=== PATIENT | female | born 1945 | race Caucasian/White ===

== ENCOUNTER 2017-12-19 18:46 | Emergency (ER) | payer MEDICARE, BC ==
[2017-12-19] MEDS ORDERED: Acetaminophen 500 MG TAB ONE (19:19)
[2017-12-19 19:23] LABS: #Eosinphils 0.2 thou/uL (0.0-0.7); #Lymphocytes 2.2 thou/uL (1.20-3.40); #Monocytes 0.5 thou/uL (0.11-0.59); #Neutrophils 3.9 thou/uL (1.40-6.50); %Basophils 0.4 % (0.0-1.0); %Eosinophils 3.2 % (0.0-10.0); %Lymphocytes 31.6 % (21.0-51.0); %Monocytes 7.5 % (0.0-10.0); %Neutrophils 57.3 % (42.0-75.0); Hemoglobin 12.9 g/dL (12.0-16.0); Mean Corpuscular HGB CONC 33.1 g/dL (32.0-36.0); Mean Corpuscular Hemoglobin 29.5 pg (27.0-31.0); Mean Corpuscular Volume 89.1 fl (81.0-99.0); Mean Platelet Volume 7.1 fL (7.4-10.4); Platelet Count 248 thou/uL (130-400); Red Blood Cell (RBC) Count 4.39 mill/uL (4.20-5.40); White Blood Cell (WBC) Count 6.8 thou/uL (4.8-10.8)
[2017-12-19 19:43] LABS: ALT (SGPT) 12 U/L (8-55); AST (SGOT) 23 U/L (5-34); Albumin 4.1 g/dL (3.4-4.8); Alkaline Phosphatase 72 U/L (40-150); Anion Gap 12 mmol/L (10-20); BUN (Urea Nitrogen) 19 mg/dL (9.8-20.1); Bilirubin, Total 0.5 mg/dL (0.2-1.2); Calc. Creatinine Clearance 0 mL/min (70-130); Calcium 9.7 mg/dL (7.8-10.44); Carbon Dioxide 28 mmol/L (23-31); Chloride 101 mmol/L (98-107); Estimated GFR-MDRD 64; Globulin 3.9 g/dL (2.4-3.5); Glucose 132 mg/dL (83-110); Sodium 137 mmol/L (136-145)
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
--- NOTE | 2018-01-25 00:01 | EKG ---
Test Reason : Blood Pressure : / mmHG Vent. Rate : 104 BPM Atrial Rate : 104 BPM P-R Int : 142 ms QRS Dur : 074 ms QT Int : 364 ms P-R-T Axes : 056 -22 060 degrees QTc Int : 478 ms Sinus tachycardia Cannot rule out Anterior infarct , age undetermined Abnormal ECG Confirmed by ANITA DEVRIES ([id number]), editorial clerk HEBERT GREEN ([id number]) on 01/25/2018 12:01:03 AM Referred By: Confirmed By:ANITA DEVRIES
== END 2017-12-19 20:32 | disposition home or self-care (01) ==
LOC: ERS 18:46
DX: S29.011A Strain of muscle and tendon of front wall of thorax, initial encounter (principal); S16.1XXA Strain of muscle, fascia and tendon at neck level, initial encounter; V43.52XA Car driver injured in collision with other type car in traffic accident, initial encounter
CPT/HCPCS: 36415; 70450; 71046; 72125; 80053; 85025; 93005; 96360

== ENCOUNTER 2018-09-28 09:23 | Outpatient (CLI) | payer MEDICARE, BC ==
[~2018-09-28 09:23] MED LIST: ADENOSINE 60 MG/20 ML VIAL ONE
--- NOTE | 2018-09-28 14:55 | NM ---
RADIONUCLIDE STRESS AND REST MYOCARDIAL PERFUSION SCAN WITH CT ATTENUATION CORRECTION AND SPECT IMAGI NG. LEFT VENTRICULAR WALL MOTION EVALUATION AND EJECTION FRACTION: HISTORY: Chest pain. Hypertension. FINDINGS: Adenosine protocol. Homogeneous uptake of radiotracer throughout the left ventricular myocardium. N o focal perfusion defect or reversibility. QGS analysis of gated SPECT images show no focal wall mot ion abnormalities. Ejection fraction calculated at 67%. IMPRESSION: 1. Normal myocardial perfusion scan. 2. Normal left ventricular ejection fraction. POS: [facility]
--- NOTE | 2018-10-08 13:09 | STRESS ---
Acquisition Time: 2018-09-28 11:24:59 Total Exercise Time: 00:04:00 Test Indications: CHEST PAIN Medications: Protocol: ADENOSINE Max HR: 105 BPM 71% of Pred: 147 BPM Max BP: 156/078 mmHG Max Work Load: 1.0 METS RESTING ECG: NORMAL SINUS RHYTHM AT 86 BPM WITH RARE PAC'S SYMPTOMS: DYSPNEA NORMAL BP RESPONSE ECTOPY: RARE PAC'S ECG STRESS: NO SIGNIFICANT CHANGES INTERPRETATION: AWAIT NUCLEAR IMAGES FOR DEFINITIVE DIAGNOSIS Confirmed by MARY DYSON ([id number]), clinical editor EKLLY SHETTY ([id number]) on 10/08/2018 1:09:29 PM Referred By: MD Sri CRAVEN Confirmed By:MARY DYSON
== END 2018-09-28 09:24 | disposition home or self-care (01) ==
LOC: NM 09:23
PROVIDERS: ATTEND Internal Medicine
DX: I25.10 Atherosclerotic heart disease of native coronary artery without angina pectoris (principal)
CPT/HCPCS: 78452; 93017; A9500; J0153

== ENCOUNTER 2019-01-05 15:29 | Outpatient (CLI) | payer MEDICARE, BC ==
--- NOTE | 2019-01-05 16:02 | MMO ---
Bilateral MAMMO Bilat Screen DDI+TO. CLINICAL HISTORY: Patient is 73 years old and is seen for screening. The patient has no family history of breast cancer. The patient has no personal history of cancer. VIEWS: The views performed were: bilateral craniocaudal with tomosynthesis and bilateral mediolateral oblique with tomosynthesis. FILMS COMPARED: The present examination has been compared to prior imaging studies performed at [facility] on 02/27/2015, 04/09/2016 and 05/20/2017. MAMMOGRAM FINDINGS: There are scattered fibroglandular densities. There are stable benign appearing calcifications seen in both breasts. There are also vascular calcifications. There are no suspicious masses, suspicious calcifications, or new areas of architectural distortion. IMPRESSION: THERE IS NO MAMMOGRAPHIC EVIDENCE OF MALIGNANCY. A ROUTINE FOLLOW-UP MAMMOGRAM IN 1 YEAR IS RECOMMENDED. THE RESULTS OF THIS EXAM WERE SENT TO THE PATIENT. ACR BI-RADS Category 2 - Benign finding MAMMOGRAPHY NOTE: 1. A negative mammogram report should not delay a biopsy if a dominant of clinically suspicious mass is present. 2. Approximately 10% to 15% of breast cancers are not detected by mammography. 3. Adenosis and dense breasts may obscure an underlying neoplasm.
== END 2019-01-05 15:30 | disposition home or self-care (01) ==
LOC: BICMAMMO 15:29
PROVIDERS: ATTEND Family Medicine
DX: Z12.31 Encounter for screening mammogram for malignant neoplasm of breast (principal)
CPT/HCPCS: 77063; 77067

== ENCOUNTER 2019-05-28 08:36 | Outpatient (CLI) | payer MEDICARE, BC ==
[2019-05-28] MEDS ORDERED: ADENOSINE 60 MG/20 ML VIAL ONE (09:05)
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
== END 2019-05-28 08:37 | disposition home or self-care (01) ==
LOC: NM 08:36
PROVIDERS: ATTEND Internal Medicine
DX: R07.9 Chest pain, unspecified (principal)
CPT/HCPCS: 78452; 93017; A9500; 71045; 80053; 82550; 84484; 85025; 93005; J0153

== ENCOUNTER 2019-05-28 13:21 | Emergency (ER) | payer MEDICARE, BC ==
[2019-05-28] MEDS ORDERED: Nitroglycerin 2% Ointment 1 INCH/1 GM Packet ONE (13:27)
[2019-05-28] MEDS ORDERED: Aspirin Chewable 81 MG TAB ONE (13:28)
[2019-05-28 13:43] LABS: #Basophils 0.1 thou/uL (0.0-0.2); #Eosinphils 0.2 thou/uL (0.0-0.7); #Lymphocytes 2.5 thou/uL (1.20-3.40); #Monocytes 0.5 thou/uL (0.11-0.59); #Neutrophils 5.1 thou/uL (1.40-6.50); %Basophils 0.9 % (0.0-1.0); %Monocytes 6.3 % (0.0-10.0); %Neutrophils 60.8 % (42.0-75.0); Hemoglobin 13.5 g/dL (12.0-16.0); Mean Corpuscular HGB CONC 33.3 g/dL (32.0-36.0); Mean Corpuscular Hemoglobin 29.6 pg (27.0-31.0); Mean Corpuscular Volume 88.8 fL (78.0-98.0); Mean Platelet Volume 7.2 fL (7.4-10.4); Platelet Count 292 thou/uL (130-400); RBC Distribution Width 12.4 % (11.5-14.5); Red Blood Cell (RBC) Count 4.57 mill/uL (4.20-5.40); White Blood Cell (WBC) Count 8.4 thou/uL (4.8-10.8)
--- NOTE | 2019-05-28 13:58 | RAD ---
Portable frontal chest radiograph: 05/28/2019 COMPARISON: 01/11/2017 HISTORY: Deep chest pain, diaphoresis FINDINGS: There is mild elevation of the right hemidiaphragm. There is atherosclerotic calcification of the aortic arch. No pneumothorax or pleural fluid. No focal consolidation or alveolar edema. IMPRESSION: No acute findings.
[2019-05-28 14:04] LABS: ALT (SGPT) 14 U/L (8-55); AST (SGOT) 18 U/L (5-34); Albumin 4.2 g/dL (3.4-4.8); Alkaline Phosphatase 81 U/L (40-110); Anion Gap 12 mmol/L (10-20); BUN (Urea Nitrogen) 17 mg/dL (9.8-20.1); Bilirubin, Total 0.4 mg/dL (0.2-1.2); CK (CPK) 60 U/L (29-168); Calc. Creatinine Clearance 0 mL/min (70-130); Calcium 9.7 mg/dL (7.8-10.44); Carbon Dioxide 30 mmol/L (23-31); Chloride 100 mmol/L (98-107); Estimated GFR-MDRD 66; Globulin 3.5 g/dL (2.4-3.5); Glucose 94 mg/dL (83-110); Protein, Total 7.7 g/dL (6.0-8.3); Sodium 138 mmol/L (136-145)
[2019-05-28] MEDS ORDERED: Lidocaine Viscous Sol 2% 15 ml UD Cup ONE (14:34)
[2019-05-28] MEDS ORDERED: Mag-Al 1200 mg/1200 mg/30 ML UDCUP ONE (14:34)
== END 2019-05-28 15:20 | disposition home or self-care (01) ==
LOC: ERS 13:21
DX: R07.9 Chest pain, unspecified (principal); Z79.82 Long term (current) use of aspirin; Z79.899 Other long term (current) drug therapy; R03.0 Elevated blood-pressure reading, without diagnosis of hypertension
CPT/HCPCS: 71045; 80053; 82550; 84484; 85025; 93005

== ENCOUNTER 2020-01-18 15:38 | Outpatient (CLI) | payer MEDICARE, BC ==
--- NOTE | 2020-01-18 16:12 | MMO ---
Bilateral MAMMO Bilat Diag DDI+TO. CLINICAL HISTORY: Patient is 74 years old and is seen for diagnostic exam and pain in the left breast. The patient has no family history of breast cancer. The patient has no personal history of cancer. VIEWS: The views performed were: bilateral craniocaudal with tomosynthesis; bilateral mediolateral oblique with tomosynthesis; and bilateral mediolateral with tomosynthesis. FILMS COMPARED: The present examination has been compared to prior imaging studies performed at [facility] on 04/09/2016, 05/20/2017 and 01/05/2019. This study has been interpreted with the assistance of computer-aided detection. MAMMOGRAM FINDINGS: There are scattered fibroglandular densities. Benign calcifications are noted bilaterally. There are no suspicious masses, suspicious calcifications, or new areas of architectural distortion. IMPRESSION: THERE IS NO MAMMOGRAPHIC EVIDENCE OF MALIGNANCY. A ROUTINE FOLLOW-UP MAMMOGRAM IN 1 YEAR IS RECOMMENDED. THE RESULTS OF THIS EXAM WERE SENT TO THE PATIENT. ACR BI-RADS Category 2 - Benign finding MAMMOGRAPHY NOTE: 1. A negative mammogram report should not delay a biopsy if a dominant of clinically suspicious mass is present. 2. Approximately 10% to 15% of breast cancers are not detected by mammography. 3. Adenosis and dense breasts may obscure an underlying neoplasm. Reported by: JOSE JUAN SOLIS MD Electonically Signed: [id number]
== END 2020-01-18 15:39 | disposition home or self-care (01) ==
LOC: BICMAMMO 15:38
PROVIDERS: ATTEND Obstetrics & Gynecology
DX: N64.4 Mastodynia (principal)
CPT/HCPCS: 77066; G0279

== ENCOUNTER 2020-03-29 10:30 | Outpatient (CLI) | payer MEDICARE, BC ==
[2020-03-29] MEDS ORDERED: Iopamidol-370 76% 500 ML 1 ML ONE (10:38)
--- NOTE | 2020-03-29 12:13 | CT ---
CTA Angio Abd W WO Con History: Acute ischemia of large intestine Comparison: Reference is made to a CT abdomen pelvis with contrast 2015 Findings: CT angiogram of the abdomen was performed after the intravenous administration of contrast. 3-D rendering provided. Mild peripheral reticulation lung bases. No pericardial effusion. The spleen, adrenal glands, kidneys are unremarkable. Liver is unremarkable. Prior cholecystectomy. N o hydronephrosis. No abnormal renal enhancing mass. Moderate parenchymal atrophy of the pancreas. Subcapsular hypodensity in the superior pole spleen unc hanged in size likely a benign entity. Moderate degenerative disc space changes lower lumbar spine. Small fat-containing umbilical hernia. Vessels: Aorta: Nonaneurysmal. No dissection. Superior mesenteric artery, celiac trunk and inferior mesenteric arteries are patent. Renal arteries are patent. Impression: 1. No hemodynamic significant stenosis of the enteric vessels. 2. Benign hypodensity superior pole of the spleen. 3. No acute inflammatory process within the abdomen.
== END 2020-03-29 10:31 | disposition home or self-care (01) ==
LOC: BICCT 10:30
PROVIDERS: ATTEND Internal Medicine
DX: K55.039 Acute (reversible) ischemia of large intestine, extent unspecified (principal); D73.89 Other diseases of spleen
CPT/HCPCS: 74175; Q9967

== ENCOUNTER 2021-12-07 11:28 | Outpatient (CLI) | payer MEDICARE, BC | END 2021-12-07 11:29 | disposition home or self-care (01) | LOC: SCSMRI 11:28 | PROVIDERS: ATTEND Physician Assistant Medical | DX: Z12.11 Encounter for screening for malignant neoplasm of colon (principal); M53.3 Sacrococcygeal disorders, not elsewhere classified; K59.09 Other constipation; K60.2 Anal fissure, unspecified; Z83.79 Family history of other diseases of the digestive system; K21.9 Gastro-esophageal reflux disease without esophagitis; K64.9 Unspecified hemorrhoids; K57.90 Diverticulosis of intestine, part unspecified, without perforation or abscess without bleeding; R10.31 Right lower quadrant pain; R07.89 Other chest pain; K62.89 Other specified diseases of anus and rectum; K64.8 Other hemorrhoids | CPT/HCPCS: 72197; 82565 ==

== ENCOUNTER 2021-12-14 10:36 | Outpatient (CLI) | payer MEDICARE, BC ==
[2021-12-14 11:47] LABS: #Eosinphils 0.3 10x3/uL (0.0-0.5); #Monocytes 0.5 10x3/uL (0.0-1.1); #Neutrophils 2.3 10x3/uL (1.5-8.4); %Basophils 0.6 % (0.0-2.0); %Eosinophils 5.4 % (0.0-6.0); %Lymphocytes 36.7 % (18.0-47.0); %Monocytes 9.8 % (0.0-10.0); %Neutrophils 47.1 % (40.0-75.0); Hemoglobin 11.5 g/dL (12.0-15.5); Mean Corpuscular HGB CONC 32.4 g/dL (32.0-36.0); Mean Corpuscular Hemoglobin 28.3 pg (27.0-33.0); Mean Corpuscular Volume 87.4 fl (81.6-98.3); Mean Platelet Volume 10.5 fl (7.4-10.4); Platelet Count 225 10x3/uL (150-450); RBC Distribution Width 12.9 % (11.5-14.5); Red Blood Cell (RBC) Count 4.06 10x6/uL (3.90-5.03); White Blood Cell (WBC) Count 4.8 10x3/uL (3.5-10.5)
[2021-12-14 12:03] LABS: Anion Gap 15 mmol/L (10-20); BUN (Urea Nitrogen) 23 mg/dL (9.8-20.1); Calc. Creatinine Clearance 0 mL/min (70-130); Calcium 9.3 mg/dL (7.8-10.44); Carbon Dioxide 28 mmol/L (23-31); Chloride 103 mmol/L (98-107); Glucose 106 mg/dL (83-110); Potassium 4.1 mmol/L (3.5-5.1); Sodium 142 mmol/L (136-145)
[2021-12-14 21:58] LABS: SARS-CoV-2 PCR by NAA Not Detected (NotDetected)
== END 2021-12-14 10:37 | disposition home or self-care (01) ==
LOC: LABBT 10:36
PROVIDERS: ATTEND Surgery
DX: Z01.812 Encounter for preprocedural laboratory examination (principal); K60.3 Anal fistula; Z20.822 Contact with and (suspected) exposure to COVID-19
CPT/HCPCS: 80048; 85025; U0003; U0005

== ENCOUNTER 2021-12-19 09:50 | Day surgery (SDC) | payer MEDICARE, BC ==
[2021-12-13 15:08] VITALS: BMI 25.9
[2021-12-19] MEDS ORDERED: Fentanyl 100 MCG/2 ML VIAL ONE ×3 (10:39→11:22)
[2021-12-19] MEDS ORDERED: Lidocaine 1% w/Epinephrine 1:100K 20 ML VIAL ONE (10:40)
[2021-12-19] MEDS ORDERED: Lidocaine 2% Jelly 5 ML TUBE ONE (10:40)
[2021-12-19] MEDS ORDERED: Bupivacaine 0.25% 10 ML VIAL ONE ×2 (10:40)
[2021-12-19] MEDS ORDERED: Famotidine/PF 20 mg/2ml Vial ONE (11:08)
[2021-12-19] MEDS ORDERED: ceFAZolin (BATCH) 2 GM/100 ML BAG ONE (11:56)
[2021-12-19] MEDS ORDERED: PROPOFOL 20 ML ONE (12:03)
[2021-12-19] MEDS ORDERED: Lidocaine 1% PF 5 ML VIAL ONE (12:08)
[2021-12-19] MEDS ORDERED: Ondansetron PF 4 MG/2 ML Vial ONE (12:08)
[2021-12-19] MEDS ORDERED: Dexamethasone 20 MG/5 ML VIAL ONE (12:08)
[2021-12-19] MEDS ORDERED: ePHEDrine 50 MG/ML VIAL ONE (12:08)
[2021-12-19] MEDS ORDERED: PROPOFOL 200 MG/20 ML VIAL ONE (12:08)
[2021-12-19] MEDS ORDERED: Promethazine HCl 25 MG/ML VIAL ONE (13:26)
== END 2021-12-19 16:30 | disposition home or self-care (01) ==
LOC: SDC 09:50
PROVIDERS: ATTEND Surgery
PROC: 0DJD8ZZ Inspection of Lower Intestinal Tract, Via Natural or Artificial Opening Endoscopic (ICD-10-PCS; principal; 2021-12-19)
DX: K62.89 Other specified diseases of anus and rectum (principal); K64.4 Residual hemorrhoidal skin tags; K21.9 Gastro-esophageal reflux disease without esophagitis; M19.90 Unspecified osteoarthritis, unspecified site; E07.9 Disorder of thyroid, unspecified; Z79.2 Long term (current) use of antibiotics; Z79.890 Hormone replacement therapy; Z79.899 Other long term (current) drug therapy; Z88.5 Allergy status to narcotic agent; Z88.8 Allergy status to other drugs, medicaments and biological substances
CPT/HCPCS: J0690; J1100; J2405; J2550; J2704; J3010; J3490; S0020; S0028

== ENCOUNTER 2022-05-01 15:35 | Observation (INO) | payer MEDICARE, BC ==
[2022-05-01 16:58] VITALS: BMI 25.9
[2022-05-01] MEDS ORDERED: HYDROcodone/Acetaminophen 7.5/325 mg Tablet PO PRN ×2 (18:26→18:37)
[2022-05-01] MEDS ORDERED: METHadone HCl 10 MG TAB PO PRN (18:37)
[2022-05-01 20:05] LABS: Troponin I Less than 0.010 ng/mL (< 0.028)
[2022-05-01] MEDS: Ondansetron ODT 4 MG TAB PO SCH (20:33)
[2022-05-01] MEDS ORDERED: Calcium Carbonate 500 MG ChewTAB PO PRN (21:06)
[2022-05-01] MEDS ORDERED: Promethazine HCl 25 MG/ML VIAL IM SCH (23:00)
[2022-05-01 23:12] LABS: Anion Gap 16 mmol/L (10-20); BUN (Urea Nitrogen) 12 mg/dL (9.8-20.1); Calc. Creatinine Clearance 62 mL/min (70-130); Calcium 9.7 mg/dL (7.8-10.44); Carbon Dioxide 26 mmol/L (23-31); Chloride 104 mmol/L (98-107); Estimated GFR 79; Glucose 121 mg/dL (83-110); Potassium 3.9 mmol/L (3.5-5.1); Sodium 142 mmol/L (136-145)
[2022-05-02] MEDS: clonazePAM 1 MG TAB PO SCH ×2 (00:13→09:39)
[2022-05-02 01:16] LABS: Troponin I 0.023 ng/mL (< 0.028)
[2022-05-02 05:05] LABS: #Lymphocytes 0.9 thou/uL (1.20-3.40); #Monocytes 0.3 thou/uL (0.11-0.59); #Neutrophils 8.1 thou/uL (1.40-6.50); %Basophils 0.4 % (0.0-1.0); %Eosinophils 0.5 % (0.0-10.0); %Lymphocytes 9.3 % (21.0-51.0); %Monocytes 3.6 % (0.0-10.0); %Neutrophils 86.2 % (42.0-75.0); Hemoglobin 12.1 g/dL (12.0-16.0); Mean Corpuscular HGB CONC 34.1 g/dL (32.0-36.0); Mean Corpuscular Hemoglobin 30.2 pg (27.0-31.0); Mean Corpuscular Volume 88.7 fL (78.0-98.0); Mean Platelet Volume 7.7 fL (7.4-10.4); Platelet Count 257 thou/uL (130-400); RBC Distribution Width 11.7 % (11.5-14.5); Red Blood Cell (RBC) Count 4.02 mill/uL (4.20-5.40); White Blood Cell (WBC) Count 9.4 thou/uL (4.8-10.8)
[2022-05-02] MEDS ORDERED: Levothyroxine Sodium 100 MCG TAB PO SCH (06:00)
[2022-05-02] MEDS: Ondansetron ODT 4 MG TAB PO SCH ×2 (06:55→15:13)
[2022-05-02] MEDS ORDERED: Polyethylene Glycol 3350 17 GM Packet PO SCH (09:00)
[2022-05-02] MEDS ORDERED: METHadone HCl 10 MG TAB PO SCH ×2 (09:00)
[2022-05-02] MEDS ORDERED: HYDROcodone/Acetaminophen 7.5/325 mg Tablet PO SCH (09:00)
[2022-05-02] MEDS ORDERED: Apixaban 5 MG TAB PO SCH (09:00)
[2022-05-02] MEDS ORDERED: Losartan 25 MG TAB PO SCH (09:00)
[2022-05-02] MEDS: Aspirin 81 mg Enteric Coated Tablet PO SCH ×2 (09:39→09:43)
[2022-05-02] MEDS ORDERED: Sodium Chloride 0.9% 500 ML IV SCH (10:30)
[2022-05-02 15:47] VITALS: BP 90/50; TEMP 98.1
== END 2022-05-02 17:20 | disposition home or self-care (01) ==
LOC: 2SW 16:35
PROVIDERS: ADMIT Family Medicine; ATTEND Family Medicine
DX: R07.2 Precordial pain (principal); I48.91 Unspecified atrial fibrillation; R55 Syncope and collapse; R53.1 Weakness; K21.9 Gastro-esophageal reflux disease without esophagitis; I10 Essential (primary) hypertension; E03.9 Hypothyroidism, unspecified; G89.4 Chronic pain syndrome; K59.09 Other constipation; Z79.01 Long term (current) use of anticoagulants; Z79.82 Long term (current) use of aspirin; Z79.890 Hormone replacement therapy; Z79.891 Long term (current) use of opiate analgesic; Z79.899 Other long term (current) drug therapy; Z88.0 Allergy status to penicillin; Z88.5 Allergy status to narcotic agent; Z88.8 Allergy status to other drugs, medicaments and biological substances; Z20.822 Contact with and (suspected) exposure to COVID-19
CPT/HCPCS: 71045; 80048; 83690; 83735; 83880; 84484 ×3; 85025; 93005; 96372; G0378 ×2; J2270; U0003; U0005; 36415; 80053; 81003; 81015; 84443; 96374; 96375; J2405; J2550; J7030; Q0162

== ENCOUNTER 2023-07-02 21:36 | Inpatient (IN) | payer MEDICARE, BC ==
[2023-07-02] MEDS ORDERED: Acetaminophen 325 MG TAB PO PRN (22:45)
[2023-07-02] MEDS ORDERED: Ondansetron ODT 4 MG TAB SL PRN (22:45)
[2023-07-02] MEDS ORDERED: Ondansetron PF 4 MG/2 ML Vial IVP PRN (22:45)
[2023-07-02 23:47] VITALS: BMI 22.2
[2023-07-03] MEDS ORDERED: dilTIAZem 125 MG in Sodium Chloride 0.9% 100 ML IVPB SCH (00:30)
[2023-07-03] MEDS: Dicyclomine 10 MG CAP PO PRN ×2 (01:49→09:59)
[2023-07-03] MEDS: clonazePAM 1 MG TAB PO PRN (01:49)
[2023-07-03 05:02] LABS: #Eosinphils 0.2 thou/uL (0.0-0.7); #Monocytes 0.7 thou/uL (0.11-0.59); #Neutrophils 3.8 thou/uL (1.40-6.50); %Basophils 0.5 % (0.0-1.0); %Eosinophils 2.8 % (0.0-10.0); %Lymphocytes 37.2 % (21.0-51.0); %Monocytes 8.7 % (0.0-10.0); %Neutrophils 50.7 % (42.0-75.0); Hematocrit 34.3 % (36.0-47.0); Hemoglobin 11.2 g/dL (12.0-16.0); Mean Corpuscular HGB CONC 32.7 g/dL (32.0-36.0); Mean Corpuscular Hemoglobin 29.7 pg (27.0-31.0); Mean Platelet Volume 10.2 fL (7.4-10.4); Platelet Count 230 10x3/uL (130-400); RBC Distribution Width 12.5 % (11.5-14.5); Red Blood Cell (RBC) Count 3.77 mill/uL (4.20-5.40); White Blood Cell (WBC) Count 7.4 10x3/uL (4.8-10.8)
[2023-07-03 05:28] LABS: ALT (SGPT) 11 U/L (8-55); AST (SGOT) 14 U/L (5-34); Albumin 3.5 g/dL (3.4-4.8); Alkaline Phosphatase 65 U/L (40-110); Anion Gap 9 mmol/L (10-20); BUN (Urea Nitrogen) 9 mg/dL (9.8-20.1); Bilirubin, Total 0.3 mg/dL (0.2-1.2); Calc. Creatinine Clearance 61 mL/min (70-130); Calcium 8.8 mg/dL (7.8-10.44); Carbon Dioxide 26 mmol/L (23-31); Chloride 107 mmol/L (98-107); Estimated GFR 89; Globulin 2.1 g/dL (2.4-3.5); Glucose 98 mg/dL (83-110); Potassium 3.3 mmol/L (3.5-5.1); Protein, Total 5.6 g/dL (5.8-8.1); Sodium 139 mmol/L (136-145); Troponin I 0.015 ng/mL (< 0.028)
[2023-07-03] MEDS: Sucralfate 1 GM TAB PO SCH ×4 (08:00→20:33)
[2023-07-03] MEDS ORDERED: Famotidine 20 MG TAB PO SCH (09:00)
[2023-07-03] MEDS ORDERED: Apixaban 5 MG TAB PO SCH ×2 (09:00→09:45)
[2023-07-03] MEDS ORDERED: Polyethylene Glycol 3350 17 GM Packet PO SCH (09:00)
[2023-07-03] MEDS ORDERED: Aspirin 81 mg Enteric Coated Tablet PO SCH (09:00)
[2023-07-03] MEDS: Aspirin Chewable 81 MG TAB PO SCH (09:56)
[2023-07-03] MEDS: Isosorbide Mononitrate 30 MG ER.TAB PO SCH (09:57)
[2023-07-03] MEDS: Losartan 25 MG TAB PO SCH (09:57)
[2023-07-03] MEDS ORDERED: Dronedarone HCl 400 MG TAB PO SCH (10:00)
[2023-07-03] MEDS ORDERED: Acetaminophen 325 MG TAB PO PRN (10:09)
[2023-07-03] MEDS ORDERED: Lidocaine 4% Patch TD SCH ×2 (12:00→12:01)
[2023-07-03] MEDS ORDERED: Calcium Carbonate 500 MG ChewTAB PO PRN (12:54)
[2023-07-03] MEDS ORDERED: Ondansetron PF 4 MG/2 ML Vial IVP PRN (12:54)
[2023-07-03] MEDS: Nortriptyline HCl 25 MG CAP PO SCH ×2 (15:19→20:33)
[2023-07-03] MEDS: Apixaban 5 MG TAB PO SCH (20:33)
[2023-07-03] MEDS: Dronedarone HCl 400 MG TAB PO SCH (20:33)
[2023-07-03] MEDS ORDERED: Transdermal Patch Removal TOP SCH (23:59)
[2023-07-04] MEDS: clonazePAM 1 MG TAB PO PRN (02:51)
[2023-07-04 05:18] LABS: Hematocrit 31.9 % (36.0-47.0); Hemoglobin 10.4 g/dL (12.0-16.0); Mean Corpuscular HGB CONC 32.6 g/dL (32.0-36.0); Mean Corpuscular Hemoglobin 29.8 pg (27.0-31.0); Mean Corpuscular Volume 91.4 fl (78.0-98.0); Mean Platelet Volume 10.4 fL (7.4-10.4); Platelet Count 220 10x3/uL (130-400); RBC Distribution Width 12.5 % (11.5-14.5); Red Blood Cell (RBC) Count 3.49 mill/uL (4.20-5.40); White Blood Cell (WBC) Count 7.4 10x3/uL (4.8-10.8)
[2023-07-04 05:35] LABS: Anion Gap 12 mmol/L (10-20); BUN (Urea Nitrogen) 16 mg/dL (9.8-20.1); Calc. Creatinine Clearance 52 mL/min (70-130); Calcium 8.8 mg/dL (7.8-10.44); Carbon Dioxide 25 mmol/L (23-31); Chloride 105 mmol/L (98-107); Estimated GFR 75; Glucose 83 mg/dL (83-110); Potassium 3.8 mmol/L (3.5-5.1); Sodium 138 mmol/L (136-145)
[2023-07-04] MEDS ORDERED: Levothyroxine Sodium 100 MCG TAB PO SCH (06:00)
[2023-07-04] MEDS: Sucralfate 1 GM TAB PO SCH ×2 (07:52→12:04)
[2023-07-04 08:24] VITALS: BP 131/78; TEMP 97.9
[2023-07-04] MEDS: Nortriptyline HCl 25 MG CAP PO SCH (08:54)
[2023-07-04] MEDS: Apixaban 5 MG TAB PO SCH (08:54)
[2023-07-04] MEDS: Isosorbide Mononitrate 30 MG ER.TAB PO SCH (08:56)
[2023-07-04] MEDS: Losartan 25 MG TAB PO SCH (08:56)
[2023-07-04] MEDS: Dronedarone HCl 400 MG TAB PO SCH (09:00)
[2023-07-04] MEDS: Aspirin Chewable 81 MG TAB PO SCH (09:00)
[2023-07-04] MEDS: Dicyclomine 10 MG CAP PO PRN (09:07)
[2023-07-04] MEDS ORDERED: Lidocaine 4% Patch TD SCH (12:00)
[2023-07-04] MEDS ORDERED: Polyethylene Glycol 3350 17 GM Packet PO SCH (21:00)
== END 2023-07-04 11:57 | disposition home or self-care (01) | DRG 310 ==
LOC: 2SE 21:57 → INTOOBSV 21:57 → 2SE 22:04 → OBSVTOIN 07-03 13:27
PROVIDERS: ADMIT Student in an Organized Health Care Education/Training Program; ATTEND Student in an Organized Health Care Education/Training Program
DX: I48.0 Paroxysmal atrial fibrillation (principal); F32.A Depression, unspecified; G89.29 Other chronic pain; K21.9 Gastro-esophageal reflux disease without esophagitis; I10 Essential (primary) hypertension; Z88.1 Allergy status to other antibiotic agents; Z88.5 Allergy status to narcotic agent; Z88.8 Allergy status to other drugs, medicaments and biological substances; Z79.01 Long term (current) use of anticoagulants; Z79.899 Other long term (current) drug therapy; Z79.82 Long term (current) use of aspirin; Z90.49 Acquired absence of other specified parts of digestive tract; Z90.710 Acquired absence of both cervix and uterus
CPT/HCPCS: 36415; 71045; 80048; 80053; 81001; 83690; 84484; 85025; 85027; 85379; 85610; 85730; 87086; 93005; 93010; J2405; J3490